=== PATIENT | male | born 1950 | race Caucasian/White ===

== ENCOUNTER 2021-02-26 12:00 | Inpatient (IN) | payer MEDICARE ==
[~2021-02-26] VITALS: Ht 172.7 cm; Wt 93.1 kg
[2021-02-26 12:22] LABS: BASOPHIL 0.9 % (0-2); EOSINOPHIL 0.1 % (0-7); HCT 44.6 % (42.0-52.0); HGB 15.4 g/dl (13.2-18.0); LYMPHOCYTE 5.2 % (15-48); MCH 33.2 pg (25.0-31.0); MCHC 34.5 g/dL (32.0-36.0); MCV 96.1 fL (78.0-100.0); MONOCYTE 14.9 % (0-12); MPV 9.1 fL (6.0-9.5); NEUTROPHIL 74.4 % (41-80); NRBC 5.3; PLT 305 K/uL (150-400); RBC 4.64 M/uL (4.70-6.00); RDW 14.5 % (11.5-14.0)
[2021-02-26 12:25] LABS: WBC 14.6 K/uL (4.0-10.5)
[2021-02-26 12:33] LABS: ALBUMIN 2.7 g/dL (3.4-5.0); BILIRUBIN - TOTAL 1.2 mg/dL (0.2-1.0); BUN/CREAT RATIO (CALC) 34.9 RATIO; CREATININE 1.06 mg/dL (0.67-1.17); GLOBULIN (CALCULATION) 4.5 g/dL; POTASSIUM 3.3 mmol/L (3.5-5.1); TOTAL PROTEIN 7.2 g/dL (6.4-8.2)
[2021-02-26 13:52] LABS: INFLUENZA A NAA NEGATIVE (NEGATIVE)
[2021-02-26 13:59] LABS: CORONAVIRUS 2019 SARS-COV-2 POSITIVE (NEGATIVE)
[2021-02-26 20:52] LABS: C-REACTIVE PROTEIN >18.00 mg/dL (<=0.90); LDH 1231 U/L (85-227)
--- NOTE | 2021-02-27 00:10 | NUR ---
PATIENT TRANSFERED OUT TO [facility] [place] BY EMS AT 2350 ON 02/26/2021. PATIENT ASSESSMENT UNCHANGED. PT. STABLE ON BIPAP, IN NO DISTRESS.
== END 2021-02-27 00:05 | disposition other institution (70) | DRG 871 ==
LOC: FER 12:00 → FTCU 15:52
PROVIDERS: Emergency Medicine; Nurse Practitioner; Nurse Practitioner Family; ADMIT Internal Medicine
PROC: 8E0ZXY6 Isolation (ICD-10-PCS; principal; 2021-02-26)
PROC: XW033E5 Introduction of Remdesivir Anti-infective into Peripheral Vein, Percutaneous Approach, New Technology Group 5 (ICD-10-PCS; 2021-02-26)
PROC: 5A0945A Assistance with Respiratory Ventilation, 24-96 Consecutive Hours, High Flow/Velocity Cannula (ICD-10-PCS; 2021-02-26)
PROC: XW0DXM6 Introduction of Baricitinib into Mouth and Pharynx, External Approach, New Technology Group 6 (ICD-10-PCS; 2021-02-27)
DX: A41.89 Other specified sepsis (principal); U07.1 COVID-19; J12.82 Pneumonia due to coronavirus disease 2019; J96.01 Acute respiratory failure with hypoxia; R65.20 Severe sepsis without septic shock; I10 Essential (primary) hypertension; I25.10 Atherosclerotic heart disease of native coronary artery without angina pectoris; E78.5 Hyperlipidemia, unspecified; J45.909 Unspecified asthma, uncomplicated; Z95.4 Presence of other heart-valve replacement
CPT/HCPCS: 36415; 36600; 71045; 71275; 80053; 82728; 82803; 83605; 83615; 85025; 85379; 86140; 87040; 94640; 94762; C9399; J0456; J0696; J1100; J2930; J7030; J7050; Q9967; U0002